=== PATIENT | female | born 1995 | race Caucasian/White ===

== ENCOUNTER → 2017-03-24 | Outpatient (CLI) | payer BC, MEDICAID ==
[~2017-03-24] MED LIST: AZTH250C PO; CLARAVIS PO; FAMO20TA5 PO; LEVO500T69 PO; NAPR-243 PO; ONDA8TAB9 PO; PHEN200T27 PO; yazmin
--- NOTE | 2017-03-24 22:06 | Diagnostic Imaging Report ---
INDICATION: survey. TECHNIQUE: Multiple real-time grayscale images were obtained over the gravid uterus. COMPARISON: None FINDINGS: The heart rate is 132 beats per minute. The placenta is fundal. There is no placenta previa. The cervix is 4 cm in length and is closed. The four-chamber view, stomach, the bladder, 2 umbilical arteries, the kidneys, the ventricles, and the spine appear unremarkable. The cord insertion is not well seen due to position. Biometrical measurements are as follows: Biparietal 4.63 cm, age 20 weeks 0 days. Head circumference 16.81 cm, age 19 weeks 4 days. Abdominal circumference 13.72 cm, age 19 weeks 2 days. Femur length 2.99 cm, age 19 weeks 2 days. Sonographic estimate age: 19 weeks 4 days. Sonographic estimated date of delivery: 08-14-17. Estimated Weight: 282 gm (+/- 41 gm). LMP percentile: 43%. heart rate: 132 beats per minute. number: 1 of 1. IMPRESSION: The cord insertion is not well seen. A followup within 2 weeks is suggested to reevaluate. Dictated by: Dictated on workstation # [id number]
== END ==
LOC: RAD 14:07
PROVIDERS: ATTEND Obstetrics & Gynecology
DX: Z36.87 Encounter for antenatal screening for uncertain dates (principal); Z3A.19 19 weeks gestation of pregnancy
CPT/HCPCS: 76805

== ENCOUNTER 2017-07-26 08:37 | Outpatient (CLI) | payer OTHER, BC, MEDICAID ==
[~2017-07-26] VITALS: Ht 167.6 cm; Wt 73.5 kg
[2017-07-26] VITALS (8 sets, daily range): BP systolic 100–117; BP diastolic 60–74
[2017-07-26] MEDS ORDERED: FERR325T18 PO (08:56)
[2017-07-26] MEDS ORDERED: PREN1TAB86 PO (08:58)
[2017-07-26] MEDS ORDERED: FAMO-119 PO (08:59)
[2017-07-26 09:21] LABS: BACTERIA,URINE MODERATE /HPF; BILIRUBIN,URINE NEGATIVE (NEGATIVE); CLARITY,URINE SLIGHTLY CLOUDY; COLOR,URINE YELLOW; GLUCOSE, URINE (UA) NEGATIVE (NEGATIVE); KETONES,URINE NEGATIVE (NEGATIVE); LEUKOCYTE ESTERASE ,URINE 2+ (NEGATIVE); NITRITE,URINE NEGATIVE (NEGATIVE); PH,URINE 5 (5-9); PROTEIN,URINE 2+ (NEGATIVE); RBC,URINE RARE /HPF; UROBILINOGEN,URINE NORMAL (NORMAL)
[2017-07-26] MEDS ORDERED: LACTATED RINGERS 1,000 ML IV SCH ×2 (09:30→17:00)
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
== END 2017-07-26 12:50 | disposition home or self-care (01) ==
LOC: WSo 08:37 → LDRP 08:37 → WSo 08:46
PROVIDERS: ATTEND Obstetrics & Gynecology
DX: Z04.1 Encounter for examination and observation following transport accident (principal); Z3A.37 37 weeks gestation of pregnancy
CPT/HCPCS: 76819; 81000; 87088; 96360; 96361; 99214

== ENCOUNTER → 2018-03-09 | Outpatient (CLI) | payer BC, MEDICAID ==
[~2018-03-09] MED LIST changes: +ACHD5005 PO; +Benzocaine/Menthol TP; +DOCU100C37 PO; +FAMO-119 PO; +FERR325T18 PO; +IBUP-1773 PO; +PREN1TAB86 PO
--- NOTE | 2018-03-09 13:17 | Diagnostic Imaging Report ---
PATIENT HISTORY: ACUTE PELVIC PAIN. TECHNIQUE: Transabdominal and transvaginal ultrasound of the pelvis. COMPARISON: None. FINDINGS: The uterus appears normal in size. An intrauterine device is seen, and appears to be in expected position. The endometrium does not appear thickened, measuring 3 mm. There is minimal free fluid. The ovaries are seen on the transabdominal view and are normal in size, measuring 3.7 x 1.7 x 1.9 cm on the right, and 3.4 x 2.1 x 2.2 cm on the left. No adnexal masses are seen. No large cysts are identified. There is no evidence of ovarian torsion. IMPRESSION: 1. Normal-appearing uterus with IUD in expected position. 2. No evidence of ovarian torsion or adnexal mass. 3. Minimal free fluid. Dictated by: Dictated on workstation # [id number]
== END ==
LOC: RAD 11:18
PROVIDERS: ATTEND Obstetrics & Gynecology
DX: R10.2 Pelvic and perineal pain (principal)
CPT/HCPCS: 76830; 76856

== ENCOUNTER → 2018-11-21 | Outpatient (CLI) | payer BC, MEDICAID ==
[~2018-11-21] MED LIST changes: +CATHETER FLUSH 10 ML SYR IV PRN; +HOLD METFORMIN - RECEIVED CONTRAST 20 ML VIAL IV SCH; +IOHEXOL 350 MG/ML 100 ML (OMNIPAQUE 350) VIAL IV ONE; +NS 100 ML (IVPB) BAG IV ONE
--- NOTE | 2018-11-21 16:35 | Diagnostic Imaging Report ---
PROCEDURE: CT abdomen and pelvis with contrast. TECHNIQUE: Multiple contiguous axial images were obtained through the abdomen and pelvis after administration of intravenous contrast. Auto Exposure Controls were utilized during the CT exam to meet ALARA standards for radiation dose reduction. INDICATION: Elevated bilirubin. FINDINGS: There are no prior CT examinations available for comparison. The sagittal images do show a 1.9 cm gallstone within the dependent portion of the gallbladder. The gallbladder wall seems slightly thickened, but this may be secondary to incomplete distention. There is no pericholecystic fluid to suggest acute cholecystitis. The common bile duct is not well visualized, but the duct does not seem to be abnormally dilated. The head of the pancreas is somewhat prominent, but there is no clear evidence for a pancreatic mass. The biliary tree does not appear to be dilated. The liver itself is prominent measuring 19 cm in length. The liver is of lower density than usually seen and this does suggest fatty metamorphosis. The spleen is enlarged measuring 15.5 cm in length. The spleen appears fairly homogeneous. The adrenals, kidneys, aorta, and inferior vena cava show no sign of an acute abnormality. The stomach is filled with particulate matter and difficult to assess. There is no pelvic mass or free fluid collection evident. The uterus and urinary bladder are grossly unremarkable. The appendix is not well visualized. There is no pelvic mass or free fluid collection evident. The bone windows are unremarkable for a fracture or for a destructive lesion. The lung bases are clear. IMPRESSION: 1. There is cholelithiasis, but there is no evidence for acute cholecystitis. The common bile duct is not well visualized, but the duct does not seem to be dilated. If further evaluation of the common bile duct is desired, then MRCP will be recommended. 2. There is borderline hepatomegaly and splenomegaly. This is of uncertain etiology. 3. There is no acute abnormality of the abdomen or pelvis noted otherwise. Dictated by: Dictated on workstation # [id number]
--- NOTE | 2018-11-21 17:39 | Diagnostic Imaging Report ---
PROCEDURE: US Hepatic (Liver). TECHNIQUE: Multiple real-time grayscale images were obtained over the right upper quadrant in various projections. INDICATION: Elevated bilirubin. FINDINGS: There are no prior ultrasound examinations available for comparison. The CT abdomen/pelvis exam performed prior to this study did note a 1.8 cm calculus within the gallbladder. There was no sign of acute cholecystitis, however. On this exam, cholelithiasis is again evident. The gallbladder wall does seem slightly thickened, but this may be secondary to incomplete distention as opposed to acute cholecystitis. The common bile duct is not dilated measuring 3 mm. The liver is prominent measuring roughly 19 cm in length. This finding was also seen on the prior exam. There is no focal mass involving the liver and the biliary tree does not appear to be abnormally dilated. Spectral and color flow imaging of the portal vein shows that the vein is patent and that there is normal direction of flow within the vein. The pancreas is not particularly well visualized, but there is no evidence for a pancreatic mass. The right kidney is unremarkable. IMPRESSION: 1. There is cholelithiasis. The thickened appearance of the gallbladder wall may be secondary to incomplete distention as opposed to acute cholecystitis. If further study is desired, then a nuclear medicine hepatobiliary scan will be recommended. 2. The common bile duct is not dilated and the intrahepatic biliary tree does not appear to be abnormally distended. 3. There is borderline hepatomegaly. 4. There is no obvious pancreatic mass. Dictated by: Dictated on workstation # [id number]
== END ==
LOC: RAD 14:46
PROVIDERS: ATTEND Nurse Practitioner Family
DX: K80.20 Calculus of gallbladder without cholecystitis without obstruction (principal); R16.2 Hepatomegaly with splenomegaly, not elsewhere classified; R17 Unspecified jaundice
CPT/HCPCS: 74177; 76705

== ENCOUNTER → 2019-06-26 | Outpatient (CLI) | payer BC, MEDICAID ==
[~2019-06-26] MED LIST changes: -CATHETER FLUSH 10 ML SYR IV PRN; -HOLD METFORMIN - RECEIVED CONTRAST 20 ML VIAL IV SCH; -IOHEXOL 350 MG/ML 100 ML (OMNIPAQUE 350) VIAL IV ONE; -NS 100 ML (IVPB) BAG IV ONE
--- NOTE | 2019-06-26 13:14 | Diagnostic Imaging Report ---
INDICATION: Autoimmune hepatitis. TECHNIQUE: Multiple real-time grayscale images were obtained of the abdomen in various projections. FINDINGS: Liver is upper limits of normal in size at 17.9 cm. There appears to be some generalized hepatic parenchymal heterogeneity, but no discrete mass is identified. The portal vein is patent and shows normal direction of flow. Gallbladder contains minimal sludge. No stones are seen. There is no wall thickening or biliary ductal dilatation. The pancreas is unremarkable. Spleen is normal in size at 10.8 cm. Aorta is nonaneurysmal. The IVC is patent. Both the right and left kidneys are normal in size. No calculi are seen. There is no hydronephrosis. There is no ascites. IMPRESSION: 1. Mild hepatic parenchymal heterogeneity but no discrete mass. 2. Minimal gallbladder sludge. There is no evidence of cholelithiasis or acute cholecystitis. Dictated by: Dictated on workstation # [id number]
--- NOTE | 2019-06-26 16:29 | Diagnostic Imaging Report ---
INDICATION: 23-year-old female with autoimmune hepatitis. Long-term prednisone use. History of rheumatoid arthritis. COMPARISON: None. FINDINGS: AP Spine L1-L4: [BMD (g/cm2): 1.070] [T-Score: -1.1] [Z-Score: -0.8] [BMD Previous: NA] [BMD % Change: NA] LT Hip Neck: [BMD (g/cm2): 0.835] [T-Score: -1.5] [Z-Score: -1.3] LT Hip Total: [BMD (g/cm2):0.826] [T-Score:-1.4] [Z-Score: -1.2] [BMD Previous: NA] [BMD % Change: NA] RT Hip Neck: [BMD (g/cm2):0.833] [T-Score:-1.5] [Z-Score:-1.3] RT Hip Total: [BMD (g/cm2):0.847] [T-score:-1.3] [Z-Score:-1.1] [BMD Previous:NA] [BMD % Change:NA] *Indicates significant change from prior examination based on 95% confidence level. World Health Organization criteria for BMD interpretation classify patients as Normal (T-score at or above -1.0), Osteopenic (T-score between -1.0 and -2.5) or Osteoporotic (T-score at or below -2.5). LIMITATIONS AND MODIFICATION: None. FRACTURE RISK (FRAX SCORE): Not applicable due to age. IMPRESSION: 1. The bone mineral density is within 2 standard deviations of expected for the patient's age. 2. Baseline examination. 3. See below National Osteoporosis Foundation guidelines on when to potentially initiate pharmacologic therapy. Based on the National Osteoporosis Foundation Guidelines, pharmacologic treatment should be initiated in any of the following, unless clinical conditions suggest otherwise: * Any patient with prior fragility fracture of the hip or vertebrae. A spine fracture indicates 5X risk for subsequent spine fracture and 2X risk for subsequent hip fracture. * Osteoporosis (T-score <-2.5). * Postmenopausal women and men age 50 and older with low bone mass/osteopenia (T-score between -1.0 and -2.5) by DXA and 10-year major osteoporotic fracture greater than 20% or a 10-year probability of hip fracture greater than 3%. These fracture risks are supplied above in the FRAX score, if applicable. * Clinician judgement and/or patient preferences may indicate treatment for people with 10-year fracture probabilities above or below these levels. Dictated by: Dictated on workstation # [id number]
== END ==
LOC: RAD 09:29
PROVIDERS: ATTEND Internal Medicine
DX: K75.4 Autoimmune hepatitis (principal)
CPT/HCPCS: 76700; 77080

== ENCOUNTER 2020-03-06 10:30 | Outpatient (CLI) | payer MEDICAID ==
[2020-03-06] MEDS ORDERED: IRON DEXTRAN 25 MG/NS 6.25 ML TOTAL VOLUME IV ONE ×3 (10:45)
[2020-03-06] MEDS ORDERED: IRON DEXTRAN 1,000 MG/NS 250 ML IVPB IV ONE ×2 (10:45)
[2020-03-06 12:55] VITALS: BP 91/69
== END 2020-03-06 13:00 | disposition home or self-care (01) ==
LOC: SDC 10:30
PROVIDERS: ATTEND Internal Medicine
DX: E61.1 Iron deficiency (principal)
CPT/HCPCS: 96365

== ENCOUNTER → 2021-07-29 | Outpatient (CLI) | payer MEDICAID ==
--- NOTE | 2021-07-29 16:45 | Diagnostic Imaging Report ---
EXAMINATION: Bilateral breast ultrasound limited. INDICATION: Breast pain. COMPARISON: There are no prior studies available for comparison. FINDINGS: Reportedly, the patient has pain in the upper outer quadrant of each breast. The ultrasound examination of these portions of the breast failed to show any discrete adenopathy. There is no mass or abscess identified. No other abnormality is identified. IMPRESSION: There is no evidence for malignancy or for an acute abnormality. Clinical followup is recommended. ACR BI-RADS Category 1: Negative. Result letter will be mailed to the patient. Note: At least 10% of breast cancer is not imaged by mammography. Dictated by: Dictated on workstation # [id number]
== END ==
LOC: RAD 14:15
PROVIDERS: ATTEND Nurse Practitioner Women's Health
DX: N64.4 Mastodynia (principal)
CPT/HCPCS: 76642